=== PATIENT | male | born 1970 | race African-American/Black ===

== ENCOUNTER 2018-11-15 08:38 | Emergency (ER) | payer OTHER ==
[~2018-11-15] VITALS: Ht 177.8 cm; Wt 74.2 kg
[2018-11-15 08:41] VITALS: Ht 177.8 cm; Wt 74.2 kg
[2018-11-15] MEDS ORDERED: KETOROLAC 30 MG INJ IM STA (10:22)
[2018-11-15] MEDS ORDERED: predniSONE 20 MG TAB PO ONE (10:30)
[2018-11-15] MEDS ORDERED: DIAZEPAM 5 MG TAB PO ONE (10:30)
[2018-11-15] MEDS ORDERED: NAPR-985 PO (12:56)
[2018-11-15] MEDS ORDERED: CYCL10TA7 PO (12:56)
[2018-11-15] MEDS ORDERED: HYDROCODONE/APAP (10/325) TAB PO ONE (13:00)
[2018-11-15] MEDS ORDERED: PRED20TA PO (13:00)
[2018-11-15 13:26] VITALS: BP 124/78; PULSE 72; RESP 16
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
== END 2018-11-15 13:27 | disposition home or self-care (01) ==
LOC: FTE 08:38
DX: M54.12 Radiculopathy, cervical region (principal)
CPT/HCPCS: 72141; 93005; 96372; J1885; J7512; Z7502; Z7610